=== PATIENT | male | born 1995 | race Asian ===

== ENCOUNTER → 2017-11-23 | Outpatient (CLI) | payer OTHER | END | disposition home or self-care (01) | LOC: C.RDSM 14:42 | PROVIDERS: ATTEND Physical Medicine & Rehabilitation Sports Medicine | DX: M79.675 Pain in left toe(s) (principal) ==

== ENCOUNTER → 2018-02-03 | Outpatient (CLI) | payer OTHER ==
--- NOTE | 2018-02-03 15:38 | DIAGNOSTIC IMAGING REPORT ---
L FOOT MIN 3 VIEWS HISTORY: 22 years-old Male LEFT FOOT PAIN acute left foot pain COMPARISON: Left foot radiographs 01/08/2018 and 11/23/2017 TECHNIQUE: 3 views of the left foot FINDINGS: Bone mineralization appears to be within normal limits. Subacute appearing fracture involving the proximal metaphyseal portion of the fifth metatarsal, 1.9 cm from the metatarsal base redemonstrated which demonstrates no significant healing from comparison. There is unchanged alignment with mild persistent soft tissue swelling. No additional acute fracture or subluxation. Mild cortical thickening about the medial second and third metatarsals may reflect sequela of stress response. No evidence of tarsal coalition. Small plantar enthesophyte about the calcaneus. IMPRESSION: Unchanged alignment of the subacute fracture of the proximal fifth metatarsal without significant healing from comparison study. Continued follow-up recommended. The above report was generated using voice recognition software. It may contain grammatical, syntax or spelling errors. Electronically signed by: Benjamin Marquez M.D. 02/03/2018 3:37 PM Dictated Date/Time: 02/03/2018 3:35 PM
== END | disposition home or self-care (01) ==
LOC: C.RDSM 15:13
PROVIDERS: ATTEND Physician Assistant
DX: M79.672 Pain in left foot (principal)